=== PATIENT | female | born 1995 | race African-American/Black ===

== ENCOUNTER 2021-10-17 20:22 | Emergency (ER) | payer OTHER ==
[~2021-10-17] VITALS: Ht 172.7 cm; Wt 115.0 kg
[2021-10-17 20:37] VITALS: BP 130/61
[2021-10-17] MEDS ORDERED: AMOXICILLIN500 MG PO (20:43)
[2021-10-17 20:47] VITALS: BP 130/61
== END 2021-10-17 20:52 | disposition home or self-care (01) ==
LOC: ED 20:22
DX: H66.92 Otitis media, unspecified, left ear (principal)

== ENCOUNTER 2022-06-15 16:40 | Emergency (ER) | payer OTHER ==
[~2022-06-15] VITALS: Ht 172.7 cm; Wt 107.2 kg
[~2022-06-15 16:40] MED LIST: AMOXICILLIN500 MG PO
[2022-06-15 17:27] VITALS: BP 138/97
[2022-06-15 17:31] VITALS: BP 140/91
[2022-06-15] MEDS ORDERED: CEPHALEXIN500 MG PO (17:35)
[2022-06-15] MEDS ORDERED: BACITRACIN3.5 GM TOP (18:02)
[2022-06-15 18:33] VITALS: BP 140/91
== END 2022-06-15 18:33 | disposition home or self-care (01) ==
LOC: ED 16:40
DX: J34.89 Other specified disorders of nose and nasal sinuses (principal)

== ENCOUNTER 2022-07-04 11:24 | Emergency (ER) | payer OTHER ==
[~2022-07-04] VITALS: Ht 172.7 cm; Wt 104.5 kg
[~2022-07-04 11:24] MED LIST changes: +BACITRACIN3.5 GM TOP; +CEPHALEXIN500 MG PO
[2022-07-04 11:31] VITALS: BP 129/88
[2022-07-04 12:14] LABS: URINE BILIRUBIN - DIPSTICK NEGATIVE (NEGATIVE); URINE BLOOD DIPSTICK TRACE-INTACT (NEGATIVE); URINE COLOR YELLOW; URINE GLUCOSE - DIPSTICK NEGATIVE (NEGATIVE); URINE KETONE NEGATIVE (NEGATIVE); URINE LEUK ESTERASE NEGATIVE (NEGATIVE); URINE PROTEIN - DIPSTICK NEGATIVE (NEG-TRACE); URINE UROBILINOGEN - DIPSTICK 0.2 E.U./dL (0.2)
[2022-07-04 12:20] LABS: URINE NITRITE - DIPSTICK NEGATIVE (Negative)
[2022-07-04] MEDS ORDERED: DIFLUCAN150 MG PO (13:03)
[2022-07-04] MEDS ORDERED: NITROFURANTN100 M2 PO (13:03)
[2022-07-04 13:08] VITALS: BP 129/88
== END 2022-07-04 13:15 | disposition home or self-care (01) ==
LOC: ED 11:24
PROVIDERS: Family Medicine
DX: N39.0 Urinary tract infection, site not specified (principal)

== ENCOUNTER 2022-08-11 16:23 | Emergency (ER) | payer OTHER ==
[~2022-08-11] VITALS: Ht 172.7 cm; Wt 104.3 kg
[~2022-08-11 16:23] MED LIST changes: +DIFLUCAN150 MG PO; +NITROFURANTN100 M2 PO
[2022-08-11 16:38] VITALS: BP 125/83
[2022-08-11 16:45] VITALS: BP 118/71
[2022-08-11 16:47] LABS: URINE BILIRUBIN - DIPSTICK NEGATIVE (NEGATIVE); URINE BLOOD DIPSTICK SMALL (NEGATIVE); URINE COLOR YELLOW; URINE GLUCOSE - DIPSTICK NEGATIVE (NEGATIVE); URINE KETONE NEGATIVE (NEGATIVE); URINE PH 5.5 (4.5-8.0); URINE PROTEIN - DIPSTICK TRACE mg/dL (NEG-TRACE); URINE SPECIFIC GRAVITY >=1.030; URINE UROBILINOGEN - DIPSTICK 0.2 E.U./dL (0.2)
[2022-08-11 16:50] LABS: URINE LEUK ESTERASE MODERATE (NEGATIVE); URINE NITRITE - DIPSTICK NEGATIVE (Negative)
[2022-08-11 16:57] LABS: URINE SQUAMOUS EPITHELIAL CELL FEW EPI/hpf (0-FEW); URINE WBC 20-50 WBC/hpf (0-5)
[2022-08-11 17:00] VITALS: BP 136/86
[2022-08-11] MEDS ORDERED: MACROBID100 M1 PO (17:08)
[2022-08-11] MEDS ORDERED: PHENAZOPYRIDIN100 M1 PO (17:08)
[2022-08-11 17:20] VITALS: BP 136/86
== END 2022-08-11 17:34 | disposition home or self-care (01) ==
LOC: ED 16:23
PROVIDERS: Internal Medicine
DX: N39.0 Urinary tract infection, site not specified (principal)

== ENCOUNTER 2022-08-31 17:05 | Emergency (ER) | payer OTHER ==
[~2022-08-31] VITALS: Ht 172.7 cm; Wt 108.9 kg
[~2022-08-31 17:05] MED LIST changes: +MACROBID100 M1 PO; +PHENAZOPYRIDIN100 M1 PO
[2022-08-31] MEDS ORDERED: BACTRIM DS1 TAB PO (18:39)
[2022-08-31] MEDS ORDERED: CIPROFLOXACN500 MG PO (18:39)
[2022-08-31] MEDS ORDERED: TRAMADOL HYDROC50 M1 PO (18:40)
[2022-08-31 20:25] VITALS: BP 114/62
== END 2022-08-31 20:25 | disposition home or self-care (01) ==
LOC: ED 17:05
DX: H60.02 Abscess of left external ear (principal); F17.200 Nicotine dependence, unspecified, uncomplicated